=== PATIENT | female | born 1980 | race Caucasian/White ===

== ENCOUNTER 2024-02-16 22:57 | Emergency (ER) | payer BC, MEDICARE, OTHER, SELFPAY ==
[2024-02-16 22:58] VITALS: BP 154/79
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
[2024-02-17] MEDS: TORADOL 30 MG IM (00:14)
[2024-02-17] MEDS: DELTASONE 50 MG PO (00:14)
== END 2024-02-17 01:51 | disposition home or self-care (01) ==
LOC: EMR 22:57
PROVIDERS: EMERGENCY PHYSICIAN Emergency Medicine
DX: S76.012A Strain of muscle, fascia and tendon of left hip, initial encounter (principal); V89.2XXA Person injured in unspecified motor-vehicle accident, traffic, initial encounter; Z90.710 Acquired absence of both cervix and uterus; Z90.721 Acquired absence of ovaries, unilateral; E03.9 Hypothyroidism, unspecified; M32.9 Systemic lupus erythematosus, unspecified; F17.290 Nicotine dependence, other tobacco product, uncomplicated
CPT/HCPCS: 99283; 96372; 72202; 73502

== ENCOUNTER 2024-09-25 13:45 | Emergency (ER) | payer BC, MEDICARE, OTHER, SELFPAY ==
[2024-09-25 13:48] VITALS: BP 131/93
[2024-09-25 14:06] LABS: % Basophils 0.4 % (0-2); % Eosinophils 0.8 % (0-6); % Immature Granulocytes 0.4 % (0-0.5); % Lymphocytes 15.7 % (20.5-51.1); % Monocytes 7.7 % (1.7-9.3); Absolute Eosinophils 0.1 10^3/uL (0-0.7); Absolute Lymphocytes 1.2 10^3/uL (1.2-3.4); Absolute Monocytes 0.6 10^3/uL (0.1-0.6); Absolute Neutrophils 5.8 10^3/uL (1.4-6.5); Hematocrit 41.9 % (37.0-47.0); Hemoglobin 13.9 g/dL (12.0-16.0); Mean Corp Hgb Conc. 33.2 g/dL (33.0-37.0); Mean Corpuscular Hgb 29.8 pg (27.0-31.0); Mean Corpuscular Volume 89.7 fL (81.0-99.0); Mean Platelet Volume 10.7 fL (7.4-10.4); Nucleated Red Blood Cells % 0 %; Platelet Count 250 10^3/uL (130-400); Red Blood Cell Count 4.67 10^6/uL (4.20-5.40); Red Cell Dist. Width 11.9 % (11.5-14.5); White Blood Cell Count 7.7 10^3/uL (4.8-10.8)
[2024-09-25 14:22] LABS: ALT (SGPT) 19 U/L (0-35); AST (SGOT) 21 U/L (14-36); Alkaline Phosphatase 62 U/L (38-126); Blood Urea Nitrogen 18 mg/dl (7-17); Calcium 9.5 mg/dl (8.4-10.2); Carbon Dioxide 32 mmol/L (22-30); Chloride 100 mmol/L (98-107); Glucose 104 mg/dl (70-99); Potassium 4.3 mmol/L (3.5-5.1); Sodium 139 mmol/L (135-145); Total Bilirubin 0.3 mg/dl (0.2-1.3); Total Protein 6.3 g/dl (6.3-8.2); eGFR > 60.00
[2024-09-25 14:32] LABS: HCG, Serum Qualitative Screen Negative
[2024-09-25 14:33] LABS: Troponin I < 0.012 ng/ml
[2024-09-25 16:45] VITALS: BP 133/85
--- NOTE | 2024-09-25 17:51 | ED.GENMED ---
History of Present Illness
General
Chief Complaint: Heart Rate Problem
Time Seen by Provider: 09/25/24 16:30
History of Present Illness
History of Present Illness:
44-year-old female with history of SLE and factor V Leiden presents to the emergency department for evaluation of heart palpitations and severe headache over the past 2 days. Notes that she had COVID 2 weeks ago. Reports feeling generally unwell
during this time as well. No fevers or chills. Notes that her had similar lightheadedness and headache yesterday but seems better. The patient reports she is improved upon arriving to the ED
Past History
Past History
ED Past Medical History: Hypothyroidism, Other (Detached retinas) and Other (Lupus)
ED Past Surgical History: Gynecological (Oophorectomy, hysterectomy) and Other (Eye surgery)
Social History
Tobacco: Vaping
Personal: Single
Living: with family
Employment: Employed
Review of Systems
Review of Systems
Allergies reviewed?: Yes
All Other Systems: ROS reviewed and negative except as documented in HPI and ROS
Phy Exam
Physical Exam
Physical Exam:
GEN: Well appearing, NAD, WDWN
HEENT: Oral mucosa moist, no scleral icterus, no nasal congestion
Cardiac: Regular rate and rhythm, no murmur
Lung: No respiratory distress, no tachypnea
MSK: No gross deformity or injuries
Skin: Good color, no pallor or jaundice, no rashes
Neuro: AO x3; CN II-XII grossly intact. BUE strength 5/5 in all chavez, sensation intact and symmetric. BLE strength 5/5 in all chavez, sensation intact and symmetric
Psych: Calm, cooperative
Course
Orders/Labs/Results
Orders:
Orders
09/25/24 13:48
Electrocardiogram (*1) Urgent
Reason for Study: Chest Pain
EKG- Treatment ONCE
Test Result ONCE
09/25/24 13:56
Complete Blood Count/With Diff Urgent
Comprehensive Metabolic Panel Urgent
HCG, Serum Qualitative Screen Urgent
Troponin I Urgent
09/25/24 16:46
CT Chest PE Study Urgent
Comment:
Reason For Exam: SOB/chest pain
CT Head W/o Iv Contrast Urgent
Comment:
Reason For Exam: headache, dizziness
09/25/24 18:34
Ketorolac [Toradol] 15 mg IV NOW STA
Metoclopramide [Reglan] 10 mg IV NOW STA
09/25/24 19:03
Carboxyhemoglobin Urgent
Abnormal Lab Results
09/25/24
13:56
MPV 10.7 H fL
(7.4-10.4)
Lymphocytes % 15.7 L %
(20.5-51.1)
Carbon Dioxide 32 H mmol/L
(22-30)
BUN 18 H mg/dl
(7-17)
Creatinine 0.5 L mg/dL
(0.6-1.0)
Glucose 104 H mg/dl
(70-99)
09/25/24 13:56
09/25/24 13:56
Vital Signs
Initial and Last Documented VS:
Initial Vital Signs
Temp Pulse Resp BP Pulse Ox
98.2 F 88 16 131/93 98
09/25/24 13:48 09/25/24 13:48 09/25/24 13:48 09/25/24 13:48 09/25/24 13:48
Last Documented Vital Signs
Temp Pulse Resp BP Pulse Ox
98.2 F 88 16 123/80 98
09/25/24 13:48 09/25/24 19:22 09/25/24 19:22 09/25/24 19:22 09/25/24 19:22
MDM/Problems Addressed
MDM/Problems Addressed:
Likely postviral syndrome, no cardiac abnormalities identified on telemetry or EKG. CT angiogram of the chest was obtained due to patient's history of multiple blood clots and factor V, this was reassuring. CT of the head shows no acute
intracranial pathology. Will sign out pending treatment of headache and carboxyhemoglobin levels
*Critical Care Note
Total Time (30-74mins, 75-104mins- exclusive of procedures): Not Applicable
ED Attending Note
-
Portions of this chart may have been created with voice recognition software.� Occasional wrong word or��sound alike� substitutions may have occurred due to the inherent limitations of voice recognition software.
Discharge Plan
Departure
Patient Disposition: Home (Routine Discharge)
Date of Disposition: 09/25/24
Time of Disposition: 19:33
Patient with high blood pressure during this ER visit?: No
Discharge Problem:
Headache, Heart palpitations
Instructions: Palpitations (DC)
Prescriptions:
No Action
modafinil 200 MG tablet
200 mg DAILY
Patient Comments:
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
methotrexate sodium 2.5 MG tablet
12.5 mg PO WEEKLY
oxycodone-acetaminophen [Percocet] 1 EACH tablet
1 tab PO TIDPRN PRN (Reason: severe pain)
Patient Comments:
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
folic acid 1 MG tablet
1 mg PO DAILY
duloxetine 30 MG capsule,delayed release(DR/EC)
30 mg PO BID
cyclobenzaprine 10 mg tablet
10 mg PO TIDPRN PRN (Reason: muscle spasm) Qty: 20 0RF
diclofenac sodium 75 mg tablet,delayed release (DR/EC)
75 mg PO BID PRN (Reason: pain) Qty: 30 0RF
Referrals:
NONE,* [Family Provider] -
Activity Restrictions/Additional Instructions:
Follow up with your family doctor
Interventions
Interventions:
*Risk Screen - Suicide Last Done: 09/25/24 13:51
*Neglect/Abuse Screening Last Done: 09/25/24 13:51
ED- Fall Risk Assessment Last Done: 09/25/24 16:02
*Nursing Disposition Last Done: 09/25/24 19:35
ED- Cardiac Assessment Last Done: 09/25/24 16:02
ED- Pulmonary Assessment Last Done: 09/25/24 16:02
Discharge Date and Time
Discharge Date/Time: 09/25/24 20:43
Print Language: MALAY
[2024-09-25] MEDS: TORADOL 15 MG IV (19:10)
[2024-09-25] MEDS: REGLAN 10 MG IV (19:10)
[2024-09-25 19:21] LABS: Carboxyhemoglobin 2.5 %
[2024-09-25 19:22] VITALS: BP 123/80
== END 2024-09-25 20:43 | disposition home or self-care (01) ==
LOC: EMR 13:45
PROVIDERS: Physician Assistant; Student in an Organized Health Care Education/Training Program; EMERGENCY PHYSICIAN Emergency Medicine
DX: R51.9 Headache, unspecified (principal); R00.2 Palpitations; E03.9 Hypothyroidism, unspecified; M32.9 Systemic lupus erythematosus, unspecified; D68.51 Activated protein C resistance; F17.290 Nicotine dependence, other tobacco product, uncomplicated
CPT/HCPCS: 99284; 96374; 96375; 70450; 71275; 80053; 82375; 84484; 84703; 85025; 93005; Q9967